=== PATIENT | female | born 1990 | race Caucasian/White ===

== ENCOUNTER 2018-12-04 20:06 | Emergency (ER) | payer MEDICAID ==
[~2018-12-04] VITALS: Ht 165.1 cm; Wt 82.1 kg
[2018-12-04 20:23] VITALS: BP 122/92
--- NOTE | 2018-12-04 20:29 | NUR ---
PT AMBULATED TO BED 7. PROVIDING URINE.
--- NOTE | 2018-12-04 20:29 | NUR ---
PATIENT AMBULATED TO ER BED 7
--- NOTE | 2018-12-04 20:29 | NUR ---
28 Y/O FEMALE BIB SELF C/O HE PAIN BEHIND EYES. ALERT TO NAME, PLACE, TIME AND EVENT. VSS. AFERBILE. LIGTH SENSITIVITY. NAUSEA WITHOUT VOMITING. NO DIZZINESS OR ALOC. ER MD AWARE. CONTINUE TO MONITOR.
[2018-12-04] MEDS ORDERED: NACL 0.9% 1,000 ML IV ONE (20:38)
[2018-12-04] MEDS ORDERED: diphenhydrAMINE 50 MG/ML VIAL IVP ONE (20:40)
[2018-12-04] MEDS ORDERED: METOCLOPRAMIDE 10 MG/2 ML INJ VIAL IVP ONE (20:40)
--- NOTE | 2018-12-04 21:19 | NUR ---
PT BACK FROM RAD
[2018-12-04] MEDS ORDERED: ACETAMINOPHEN EXTRA STRENGTH 500 MG TAB PO ONE (21:25)
[2018-12-04] MEDS ORDERED: fentaNYL 0.05 MG/ML VIAL IVP ONE (21:25)
--- NOTE | 2018-12-04 22:13 | NUR ---
Patient discharged with v/s stable. Written and verbal after care instructions given and explained. Patient alert, oriented and verbalized understanding of instructions. Ambulatory with steady gait. All questions addressed prior to discharge. ID band removed. Patient advised to follow up with PMD. Rx of REGLAN AND FIORICET WAS given. Patient educated on indication of medication including possible reaction and side effects. Opportunity to ask questions provided and answered.
[2018-12-04 22:15] VITALS: BP 107/63
== END 2018-12-04 22:13 | disposition home or self-care (01) ==
LOC: MED 20:06
DX: R51 Headache (principal); R11.0 Nausea; H53.149 Visual discomfort, unspecified; F17.200 Nicotine dependence, unspecified, uncomplicated; Z88.8 Allergy status to other drugs, medicaments and biological substances; Z90.49 Acquired absence of other specified parts of digestive tract
CPT/HCPCS: 70450; 81025; 96374; 96375; 99284; J1200; J2765; J3010; J7030